=== PATIENT | female | born 1980 | race Caucasian/White ===

== ENCOUNTER 2021-01-19 18:32 | Emergency (ER) | payer BC ==
[~2021-01-19] VITALS: Ht 172.7 cm; Wt 80.9 kg
[2021-01-19 18:55] VITALS: Ht 172.7 cm; Wt 80.9 kg
[2021-01-19 19:28] LABS: BASOPHIL % 0.2 % (0.2-1.3); PLATELET COUNT 314 x10^3mcL (179-408)
[2021-01-19 19:29] LABS: RED CELL DISTRIBUTION WIDTH 14.8 % (12.3-17.7)
[2021-01-19 19:37] LABS: CALCIUM 8.6 mg/dL (8.5-10.1); CARBON DIOXIDE 23.3 mmol/L (21-32); CREATININE SERUM 1.1 mg/dL (0.6-1.0); POTASSIUM SERUM 4.3 mmol/L (3.5-5.1)
[2021-01-19 19:41] LABS: ALBUMIN 3.7 g/dL (3.4-5.0); BILIRUBIN TOTAL 0.36 mg/dL (0.20-1.00)
[2021-01-19] MEDS ORDERED: ONDANSETRON4 M3 PO (20:42)
[2021-01-19] MEDS ORDERED: IBU600 M2 PO (20:42)
[2021-01-19 21:28] VITALS: BP 107/71
== END 2021-01-19 21:33 | disposition home or self-care (01) ==
LOC: ED 18:32
PROVIDERS: Emergency Medicine
DX: D25.9 Leiomyoma of uterus, unspecified (principal); Z88.0 Allergy status to penicillin; Z88.6 Allergy status to analgesic agent; Z88.5 Allergy status to narcotic agent; Z88.8 Allergy status to other drugs, medicaments and biological substances; Z98.890 Other specified postprocedural states
CPT/HCPCS: J1885; J2405; J7030